=== PATIENT | female | born 1955 | race Caucasian/White ===

== ENCOUNTER → 2019-05-06 | Outpatient (CLI) | payer BC ==
--- NOTE | 2019-05-07 10:48 | KCIC ---
Bilateral digital screening mammograms and tomosynthesis Reason for examination: Routine screening. Comparison is made to previous study dated May 05, 2016 and priors [facility]. Routine CC and MLO digital views obtained. Interpretation was made with the benefit of CAD. The skin and nipples show no abnormalities. No abnormal axillary lymph nodes are seen. The breast parenchyma is heterogeneously dense. (Breast density: Category C.) There are benign calcifications. At the left upper outer breast posterior depth 11 cm from the nipple there is a large group of microcalcifications in an approximate 3 cm segment which appear more numerous and more tightly clustered than on the prior exam, on the MLO reconstructed mammogram and tomosynthesis images there may be associated architectural distortion with these calcifications as well. At the right outer lower breast 8:00 position 7 cm from the nipple mid depth there is focal nodular asymmetry best demonstrated on MLO tomosynthesis image 11 and CC tomosynthesis image 34. Impression: Left upper outer breast microcalcifications and possible architectural distortion. Right outer breast nodular asymmetry. Further evaluation with left diagnostic mammogram with magnification views and bilateral breast ultrasound is advised. ?Your patient's mammogram demonstrates that she has dense breast tissue (breast density category C or D), which could hide abnormalities, and if she has other risk factors for breast cancer that have been identified, she might benefit from supplemental screening tests that may be suggested by you as her ordering physician. Dense breast tissue, in and of itself, is a relatively common condition. Therefore, this information is not provided to cause undue concern, but rather to raise your awareness and to promote discussion with your patient regarding the presence of other risk factors, in addition to dense breast tissue. Your patient's mammography results will be sent to her. BI-RAD Category 0: Incomplete examination. "Our facility is accredited by the [employer] Mammography [employer]." This patient's information has been entered into a reminder system for the patient to be notified with the results of her examination and a target date for the next mammogram. Electronically signed by: Sheldon Wood MD (05/07/2019 10:45 AM) [id number]
== END | disposition home or self-care (01) ==
LOC: KCIC MAMMO 09:49
PROVIDERS: ATTEND Nurse Practitioner Family
DX: Z12.31 Encounter for screening mammogram for malignant neoplasm of breast (principal); N64.89 Other specified disorders of breast; N63.13 Unspecified lump in the right breast, lower outer quadrant
CPT/HCPCS: 77063; 77067

== ENCOUNTER → 2019-05-14 | Outpatient (CLI) | payer BC ==
--- NOTE | 2019-05-14 17:53 | KCIC ---
Left breast diagnostic digital mammograms: Reason for examination: Increasing calcifications on mammographic screening. Comparison is made to previous studies dated 05/06/2019 and 05/05/2016. Coned compression magnification views were obtained in CC and lateral projections. There are clustered calcifications in the upper outer quadrant at approximately the 2:00 C position which have shown interval progression. Further evaluation with stereotactic biopsy should be considered. IMPRESSION: Clustered calcifications at the 2:00 C position. Recommend stereotactic biopsy. BI-RADS Category 4: Suspicious. Bilateral breast ultrasound: Bilateral whole breast ultrasound including evaluation of all 4 quadrants and the retroareolar and axillary regions of both breasts was performed. The right breast shows some minimal fibrocystic type change in the 9:30 position 7 cm from the nipple. No suspicious abnormalities are seen. No abnormal appearing lymph nodes are seen in the right axilla. The left breast however shows a solid lesions were loculated nodule at the 2:00 position 10 cm from the nipple measuring approximately 6.5 mm in greatest dimension. There also is a 1 cm nodule at the 1:00 position 13 cm from the nipple slightly lobulated contour. Further evaluation of these lesions with biopsy is recommended. No abnormal appearing lymph nodes are seen in the left axilla. IMPRESSION: Nodular lesions at the 1:00 and 2:00 positions of the left breast. Recommend further evaluation with ultrasound guided biopsies. BI-RADS Category 4: Suspicious. These findings have been discussed with the patient and the patient's clinician will be notified regarding these findings and recommendations. "Our facility is accredited by the [employer] Mammography [employer]." Electronically signed by: Sandee Burnett MD (05/14/2019 5:50 PM) [facility]
== END | disposition home or self-care (01) ==
LOC: KCIC MAMMO 09:44
PROVIDERS: ATTEND Nurse Practitioner Family
DX: N64.89 Other specified disorders of breast (principal)
CPT/HCPCS: 76641; 77065

== ENCOUNTER → 2021-02-11 | Outpatient (CLI) | payer BC ==
--- NOTE | 2021-02-11 14:20 | KCIC ---
Bilateral digital screening mammograms: Reason for examination: Routine screening. Comparison is made to previous studies dated back to 10/09/2013. Interpretation was made with the benefit of CAD. The skin and nipples show no abnormalities. No abnormal axillary lymph nodes are seen. The breast par enchyma is heterogeneously dense. (Breast density: Category C) There continue to be clustered calcifi cations posteriorly at the 2:00 C position of the left breast with 2 adjacent biopsy clips. There are no new dominant masses or new processes of suspicious calcifications. Scattered benign calcification s are seen. Impression: Stable calcifications in the upper outer quadrant with adjacent biopsy clips. No other new abnormalit y seen. New routine mammographic follow-up. Your patient's mammogram demonstrates that she has dense breast tissue (breast density category C or D), which could hide abnormalities, and if she has other risk factors for breast cancer that have bee n identified, she might benefit from supplemental screening tests that may be suggested by you as her ordering physician. Dense breast tissue, in and of itself, is a relatively common condition. Therefo re, this information is not provided to cause undue concern, but rather to raise your awareness and t o promote discussion with your patient regarding the presence of other risk factors, in addition to d ense breast tissue. Your patient's mammography results will be sent to her. BI-RADS Category 2: Benign. "Our facility is accredited by the [employer] Mammography [employer]." This patient's information has been entered into a reminder system for the patient to be notified wit h the results of her examination and a target date for the next mammogram. Electronically signed by: Sandee Burnett MD (02/11/2021 2:18 PM) [id number]
== END ==
LOC: KCIC MAMMO 10:32
PROVIDERS: ATTEND Nurse Practitioner Family
DX: Z12.31 Encounter for screening mammogram for malignant neoplasm of breast (principal)
CPT/HCPCS: 77067

== ENCOUNTER → 2021-02-11 | Outpatient (CLI) | payer BC ==
--- NOTE | 2021-02-11 15:51 | KCIC ---
XR EXAM OF ANKLE_LEFT 3V, XR KNEE 3 VIEWS Clinical indications: Reason: Polyarthralgia / Spl. Instructions: / History: Right knee: No acute fracture or dislocation or osteolytic process is evident. There is mild degenera tive spurring of the medial tibiofemoral joint compartment without joint space narrowing. There is mo derate joint space narrowing and spurring of the patellofemoral joint compartment. No erosive arthrop athy is seen. No right knee joint effusion is seen. Left knee: No acute fracture or dislocation or lytic process is seen. No significant joint space narr owing or spurring of the medial or lateral tibiofemoral joint compartments is seen. There is severe j oint space narrowing and mild spurring of the patellofemoral joint compartment. No erosive arthropath y is seen. No significant left knee joint effusion is seen. IMPRESSION: Osteoarthritis of both knees more prominently involving the patellofemoral joint compartm ent bilaterally. This could be secondary to chondromalacia patellae on both sides. This could also be seen with CPPD although no articular or synovial calcification is evident. LEFT ANKLE STUDY: Lateral soft tissue swelling is seen. No acute fracture or dislocation or lytic pro cess is evident. There is mild degenerative spurring of the tibiotalar joint compartment. No erosive arthropathy is seen. The mortise ankle joint is intact. Tiny plantar spur of the calcaneus is seen. IMPRESSION: No acute fracture. Mild degenerative spurring of the tibiotalar joint compartment is seen . Electronically signed by: John Monahan MD (02/11/2021 3:48 PM) [id number]
== END ==
LOC: KCIC 10:35
PROVIDERS: ATTEND Family Medicine
DX: M17.0 Bilateral primary osteoarthritis of knee (principal); M77.32 Calcaneal spur, left foot; M79.89 Other specified soft tissue disorders
CPT/HCPCS: 73610; 73562-50